=== PATIENT | male | born 1990 | race Two or more races ===

== ENCOUNTER 2020-05-27 16:58 | Emergency (ER) | payer OTHER ==
[~2020-05-27] VITALS: Ht 177.8 cm; Wt 158.8 kg
[2020-05-27 17:16] VITALS: BP 137/86
== END 2020-05-27 19:44 | disposition home or self-care (01) ==
LOC: ER 16:58
DX: S93.601A Unspecified sprain of right foot, initial encounter (principal); E66.9 Obesity, unspecified; Z68.43 Body mass index [BMI] 50.0-59.9, adult; X58.XXXA Exposure to other specified factors, initial encounter; Y93.89 Activity, other specified; Y92.89 Other specified places as the place of occurrence of the external cause; Y99.8 Other external cause status
CPT/HCPCS: 73630

== ENCOUNTER 2021-08-05 08:26 | Emergency (ER) | payer OTHER ==
[~2021-08-05] VITALS: Ht 177.8 cm; Wt 158.8 kg
[2021-08-05] MEDS ORDERED: AMOX-277 PO (08:39)
[2021-08-05] MEDS ORDERED: IBUP800T27 PO (08:39)
[2021-08-05 08:40] VITALS: BP 144/90
== END 2021-08-05 08:49 | disposition home or self-care (01) ==
LOC: ER 08:26
DX: H66.91 Otitis media, unspecified, right ear (principal); E66.01 Morbid (severe) obesity due to excess calories; Z68.43 Body mass index [BMI] 50.0-59.9, adult; Z79.2 Long term (current) use of antibiotics; Z79.1 Long term (current) use of non-steroidal anti-inflammatories (NSAID)

== ENCOUNTER 2022-03-19 19:50 | Emergency (ER) | payer OTHER ==
[~2022-03-19] VITALS: Ht 177.8 cm; Wt 136.5 kg
[~2022-03-19 19:50] MED LIST: AMOX-277 PO; IBUP800T27 PO
[2022-03-19 22:00] VITALS: BP 140/78
== END 2022-03-19 22:00 | disposition home or self-care (01) ==
LOC: ER 19:51
DX: S80.811A Abrasion, right lower leg, initial encounter (principal); W18.39XA Other fall on same level, initial encounter; Y93.89 Activity, other specified; Y92.89 Other specified places as the place of occurrence of the external cause; Y99.8 Other external cause status
CPT/HCPCS: 73590

== ENCOUNTER 2022-10-30 11:08 | Emergency (ER) | payer OTHER ==
[~2022-10-30] VITALS: Ht 177.8 cm; Wt 139.5 kg
[2022-10-30 11:36] VITALS: BP 123/62
[2022-10-30] MEDS ORDERED: ERY05OO OP (14:04)
[2022-10-30] MEDS ORDERED: TETRACAINE HCL 0.5% OPTH(EYE) SOLN 4ML RIGHTEYE ONE (14:15)
[2022-10-30] MEDS ORDERED: FLUORESCEIN SOD OPTH TEST STRIP RIGHTEYE ONE (14:15)
[2022-10-30] MEDS ORDERED: HYD1TP TOP (14:39)
[2022-10-30] MEDS ORDERED: DIPH25CA66 PO (14:39)
== END 2022-10-30 14:47 | disposition home or self-care (01) ==
LOC: ER 11:08
DX: S05.01XA Injury of conjunctiva and corneal abrasion without foreign body, right eye, initial encounter (principal); L25.9 Unspecified contact dermatitis, unspecified cause; X58.XXXA Exposure to other specified factors, initial encounter; Y93.89 Activity, other specified; Y92.89 Other specified places as the place of occurrence of the external cause; Y99.8 Other external cause status